=== PATIENT | male | born 1975 | race American Indian/Alaskan Native ===

== ENCOUNTER 2021-01-15 11:23 | Outpatient (CLI) | payer OTHER ==
--- NOTE | 2021-01-15 14:09 | Magnetic Resonance Report ---
MRI RIGHT ANKLE WITHOUT CONTRAST INDICATION / CLINICAL INFORMATION: RIGHT FOOT INJURY--ACHILLES INJURY. TECHNIQUE: Multiplanar, multisequence MR images were obtained. No contrast used. COMPARISON: None available. FINDINGS: ACHILLES TENDON: Full-thickness tear of the Achilles tendon approximately 7.6 cm from its distal calc aneal attachment. There is approximately 0.6 cm of tendon gap between the torn tendon fibers. Associa treva regional soft tissue edema. There is severe tendinosis of the distal Achilles tendon. PLANTAR FASCIA: No significant abnormality. POSTERIOR TIBIAL / FLEXOR TENDONS: No significant abnormality. PERONEAL TENDONS: No significant abnormality. ANTERIOR TIBIAL / EXTENSOR TENDONS: No significant abnormality. TALOFIBULAR LIGAMENTS: Chronic sprain of the ATFL TIBIOFIBULAR LIGAMENTS: No significant abnormality. DISTAL TIBIOFIBULAR SYNDESMOSIS: No significant abnormality. CALCANEOFIBULAR LIGAMENT: No significant abnormality. DELTOID LIGAMENT: No significant abnormality. SPRING LIGAMENT: No significant abnormality. TIBIOTALAR JOINT SPACE: No chondrosis or articular cartilage defect. No significant joint effusion or synovitis. No intra-articular bodies. SUBTALAR JOINTS: Mild degenerative change. SINUS TARSI: No significant abnormality. TARSAL TUNNEL: No significant abnormality. BONES / OTHER JOINTS: Mild degenerative changes of the midfoot and hindfoot. Prominent osteophyte of the anterior talus. SUBCUTANEOUS SOFT TISSUES: No significant abnormality. ADDITIONAL FINDINGS: None. IMPRESSION: 1. Full thickness tear of the Achilles tendon as detailed above. 2. Chronic changes as above. Report dictated by: Mina Ramirez MD Report dictated on: 01/15/2021 12:43 PM I have reviewed the images, agree with this report, and edited this report as needed. Signer Name: Augusto Daniels MD Signed: 01/15/2021 2:04 PM Workstation Name: [id number]
== END 2021-01-15 11:24 | disposition home or self-care (01) ==
LOC: MRI 11:23
PROVIDERS: ATTEND Internal Medicine
DX: S86.021A Laceration of right Achilles tendon, initial encounter (principal); S93.401A Sprain of unspecified ligament of right ankle, initial encounter; M19.079 Primary osteoarthritis, unspecified ankle and foot; X58.XXXA Exposure to other specified factors, initial encounter; Y93.89 Activity, other specified; Y92.89 Other specified places as the place of occurrence of the external cause; Y99.8 Other external cause status